=== PATIENT | female | born 1960 | race Asian ===

== ENCOUNTER 2024-05-29 10:42 | Outpatient (REF) | payer OTHER, SELFPAY ==
--- NOTE | ~2024-05-29 | XR_ITS ---
EXAMINATION: XR CLAVICLE RIGHT HISTORY: S42.009A - Fracture of unspecified part of unspecified clavicle, initial... COMPARISON: Comparison is made with the prior examination dated 05/21/2024. FINDINGS: Two views of the right clavicle are submitted. Osseous mineralization is normal. Again seen is a comminuted fracture of the mid shaft of the clavicle. There is new inferior displacement of the distal fracture fragment. 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 The soft tissues are unremarkable. XR/XR clavicle RT IMPRESSION: Comminuted fracture of the midshaft of the right clavicle with new inferior displacement of the distal fracture fragment. Electronically signed by: Hugo Be MD 05/31/2024 11:18 AM LUIS
== END 2024-05-29 10:43 | disposition home or self-care (01) ==
LOC: HO.HOSX 10:42
PROVIDERS: PCP Internal Medicine; Visit Provider Physician Assistant
DX: S42.021A Displaced fracture of shaft of right clavicle, initial encounter for closed fracture (principal)
CPT/HCPCS: 73000

== ENCOUNTER → 2024-05-29 11:44 | Outpatient (BNV) | payer OTHER, SELFPAY | PROVIDERS: PCP Internal Medicine; Visit Provider Radiology Diagnostic Radiology | DX: S42.001A Fracture of unspecified part of right clavicle, initial encounter for closed fracture (principal); Z04.3 Encounter for examination and observation following other accident | CPT/HCPCS: 73000 ==

== ENCOUNTER 2024-06-26 07:24 | Outpatient (REF) | payer OTHER, SELFPAY | END 2024-06-26 07:25 | disposition home or self-care (01) | LOC: HO.HOSX 07:24 | PROVIDERS: Visit Provider Physician Assistant | DX: Z13.89 Encounter for screening for other disorder (principal) ==

== ENCOUNTER 2024-06-28 08:40 | Outpatient (REF) | payer OTHER, SELFPAY ==
--- NOTE | ~2024-06-28 | XR_ITS ---
EXAMINATION: XR CLAVICLE, RIGHT CLINICAL INFORMATION: S42.009A - Fracture of unspecified part of unspecified clavicle, initial... COMPARISON: May 2024. TECHNIQUE: Two views of the right clavicle. FINDINGS: There is a comminuted fragmented fracture of the mid-distal diaphysis with inferior displacement of the distal fragments. No callus formation. Degenerative changes in the right glenohumeral joint. XR/XR clavicle RT IMPRESSION: No callus formation in the comminuted displaced fracture, right clavicle. Electronically signed by: Ant Martini MD 06/28/2024 09:43 AM EST
== END 2024-06-28 08:41 | disposition home or self-care (01) ==
LOC: HO.HOSX 08:40
PROVIDERS: Visit Provider Physician Assistant
DX: S42.021D Displaced fracture of shaft of right clavicle, subsequent encounter for fracture with routine healing (principal)
CPT/HCPCS: 73000

== ENCOUNTER 2024-07-24 11:00 | Outpatient (RCR) | payer OTHER, SELFPAY ==
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
== END 2024-09-17 11:29 | disposition home or self-care (01) ==
LOC: HO.PT 11:00
PROVIDERS: PCP Internal Medicine; Visit Provider Physician Assistant
DX: S42.001D Fracture of unspecified part of right clavicle, subsequent encounter for fracture with routine healing (principal)
CPT/HCPCS: 97110; 97140; 97161

== ENCOUNTER 2024-08-07 06:30 | Outpatient (REF) | payer OTHER, SELFPAY ==
--- NOTE | ~2024-08-07 | XR_ITS ---
EXAMINATION: XR CLAVICLE RIGHT HISTORY: S42.009A - Fracture of unspecified part of unspecified clavicle, initial... COMPARISON: Comparison is made with the prior examination dated 06/28/2024. FINDINGS: Two views of the right clavicle are submitted. Osseous mineralization is normal. Again seen is a comminuted fracture of the clavicle. The appearance is not significantly changed from the prior study. No significant callus formation is noted. There is mild to moderate osteoarthritis of the AC joint. The soft tissues are unremarkable. XR/XR clavicle RT IMPRESSION: Comminuted fracture of the clavicle without change. Electronically signed by: Hugo Be MD 08/07/2024 03:19 PM EDT
== END 2024-08-07 06:31 | disposition home or self-care (01) ==
LOC: HO.HOSX 06:30
PROVIDERS: Visit Provider Physician Assistant
DX: S42.001D Fracture of unspecified part of right clavicle, subsequent encounter for fracture with routine healing (principal); M19.011 Primary osteoarthritis, right shoulder
CPT/HCPCS: 73000

== ENCOUNTER 2024-08-07 10:56 | Outpatient (AMB) | payer OTHER, SELFPAY ==
[2024-08-07 11:08] VITALS: BMI 29.3
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
== END 2024-08-07 11:40 | disposition home or self-care (01) ==
LOC: HO.HOS 10:56
PROVIDERS: Visit Provider Physician Assistant
DX: S42.001A Fracture of unspecified part of right clavicle, initial encounter for closed fracture (principal)
CPT/HCPCS: 99213

== ENCOUNTER → 2024-08-07 10:59 | Outpatient (BNV) | payer OTHER, SELFPAY | PROVIDERS: Visit Provider Radiology Diagnostic Radiology | DX: S42.001A Fracture of unspecified part of right clavicle, initial encounter for closed fracture (principal) | CPT/HCPCS: 73000 ==

== ENCOUNTER 2024-10-02 09:35 | Outpatient (REF) | payer OTHER, SELFPAY ==
--- NOTE | ~2024-10-02 | XR_ITS ---
EXAMINATION: XR CLAVICLE RIGHT HISTORY: S42.009A - Fracture of unspecified part of unspecified clavicle, initial... COMPARISON: Comparison is made with the prior examination dated 08/07/2024. FINDINGS: Two views of the right clavicle are submitted. The bones are osteopenic. Again seen is a comminuted fracture of the clavicle. There is greater callus formation noted at the fracture site, consistent with healing. There is moderate degenerative change of the AC joint and severe osteoarthritis of the glenohumeral joint. The soft tissues are unremarkable. XR/XR clavicle RT IMPRESSION: Healing fracture of the right clavicle. Electronically signed by: Hugo Be MD 10/02/2024 01:34 PM EDT
== END 2024-10-02 09:36 | disposition home or self-care (01) ==
LOC: HO.HOSX 09:35
PROVIDERS: Visit Provider Physician Assistant
DX: S42.001A Fracture of unspecified part of right clavicle, initial encounter for closed fracture (principal)
CPT/HCPCS: 73000

== ENCOUNTER 2024-10-02 11:49 | Outpatient (AMB) | payer OTHER, SELFPAY ==
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
[2024-10-02 12:05] VITALS: BMI 29.3
== END 2024-10-02 12:12 | disposition home or self-care (01) ==
LOC: HO.HOS 11:50
PROVIDERS: PCP Internal Medicine; Visit Provider Physician Assistant
DX: S42.001A Fracture of unspecified part of right clavicle, initial encounter for closed fracture (principal)
CPT/HCPCS: 99213; G2211

== ENCOUNTER → 2024-10-02 11:55 | Outpatient (BNV) | payer OTHER, SELFPAY | PROVIDERS: Visit Provider Radiology Diagnostic Radiology | DX: S42.001D Fracture of unspecified part of right clavicle, subsequent encounter for fracture with routine healing (principal) | CPT/HCPCS: 73000 ==

== ENCOUNTER 2025-01-23 10:19 | Outpatient (AMB) | payer OTHER, SELFPAY ==
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
[2025-01-23 10:33] VITALS: BP 106/70; PULSE 109; TEMP 37.3; O2SAT 96; BMI 30.4
--- OUTSIDE RECORDS SUMMARY | 2025-01-23 11:39 | XMS_ITS | Clinical Summary ---
Author Organization [facility] Address [address] [place] [id number] Phone Care Team Providers Care Clinical Case Manager Name Role Phone Unknown, Unknown Primary Care Provider Krista ramsay Social History Tobacco Use Types Packs/Day Years Used Date Smoking Tobacco: Never Assessed Education Answer Date Recorded Are you interested in more education? Not on layla e 09/16/2022 Are you concerned about learning? Not on file 09/16/2022 No 09/16/2022 No 09/16/2022 Digital Access Answer Date Recorded No 10/17/2022 No 10/17/2022 No 10/17/2022 Reliable internet access at home? Not on file 10/17/2022 Device with a working camera? Not on file Comments Unknown Sex and Gender Information Value Date Recorded Sex Assigned at Not on file Legal Sex Female 4:06 PM EST Gender Identity Not on file Sexual Orientation Not on file Plan of Treatment Health Maintenance Due Date Last Done Comments Adult Td,Tdap Booster 1960 LIPID PANEL 1960 DEPRESSION SCREENING 1972 SMOKING Hx and SMOKELESS TOB ACCO SCREENING 1973 HEPATITIS C SCREENING 1978 HIV ONE-TIME SCREENING (18-6 5 YEARS) 1978 PAP SMEAR 1981 MAMMOGRAM 2000 COLOGUARD 2005 COLONOSCOPY 2005 COLORECTAL CANCER SCREENING 2005 FIT TEST 2005 FOBT 2005 SIGMOIDOSCOPY 2005 VIRTUAL COLONOSCOPY 2005 PNEUMOCOCCAL VACCINES (50+ y ears) (1 of 1 - PCV) 2010 ZOSTER VACCINES (1 of 2) 2010 INFLUENZA VACCINE (#1) 2024 01/23/2017 COVID-19 VACCINE (2 - 2024-2 6 season) 2025 09/16/2020 RSV VACCINE (1 - 1-dose 75+ series) 12/04/2035 HEPATITIS A VACCINES Aged Out No long er eligible based on patient's age to complete this topic HIB VACCINES Aged Out No longer eligi ble based on patient's age to complete this topic MENINGOCOCCAL VACCINES (ACWY) Aged Out No longer eligible based on patient's age to complete this topic MENINGOCOCCAL VACCINES (B) Aged Out N o longer eligible based on patient's age to complete this topic Medical Devices Not on file Insurance [id number] [employer]GET[employer] [id number] [employer] [address] [place] [address] [address] [place] [address] [place] [address] [id number] [employer] [id number] [employer] [place] [address] [place] [address] [employer] Member Subscriber Plan / Payer (Ef fective 2014-Present) Name:Jade Reaves Relation to Subscriber:Self Name:Jade Reaves Payer ID:[id number] (NAIC) Group ID:Not on file Type:Medicaid Address: [facility] [address] [id number] Care Teams Clinical Case Manager Relationship Specialty Start Date End Date Unknown, Unknown, PCP - General 02/02/23 Additional Source Comments The information contained in this document represents components of the legal health record. It is not the complete legal health record.[facility]
== END 2025-01-23 11:41 | disposition home or self-care (01) ==
PROVIDERS: PCP Internal Medicine; Visit Provider Physician Assistant Medical
DX: S80.861A Insect bite (nonvenomous), right lower leg, initial encounter (principal); W57.XXXA Bitten or stung by nonvenomous insect and other nonvenomous arthropods, initial encounter; L03.115 Cellulitis of right lower limb